=== PATIENT | female | born 1970 | race Caucasian/White ===

== ENCOUNTER 2017-06-15 11:45 | Inpatient (IN) | payer OTHER ==
[~2017-06-15] VITALS: Ht 167.6 cm; Wt 61.6 kg
[2017-06-15 13:21] LABS: EOSINOPHIL (%) 0 % (0-5); HEMATOCRIT 49.2 % (36.0-46.0); IMMATURE GRANULOCYTE (%) 0.6 % (0.0-0.7); IMMATURE GRANULOCYTE COUNT 0.1 K/uL; INSTRUMENT ABS NEUTROPHIL CT 18.5 K/uL; LYMPHOCYTE COUNT 2.2 K/uL (1.0-2.8); MCH 22.2 PG (29.0-34.0); MCHC 32.3 G/DL (30.0-36.0); MCV 68.6 FL (83-99); MEAN PLAT.VOLUME 9.3 uM^3 (9.5-12.4); MONOCYTE (%) 5.7 % (3-12); MONOCYTE COUNT 1.3 K/uL (0-0.8); NEUTROPHIL (%) 83.7 % (45-76); NEUTROPHIL COUNT 18.5 K/uL (1.8-6.4); PLATELET COUNT 437 K/uL (156-360); RBC DIS.WIDTH-CV 19.2 % (11.8-14.6); RED BLOOD COUNT 7.17 M/uL (3.80-5.20); WHITE BLOOD COUNT 22.1 K/uL (4.1-10.2)
[2017-06-15 13:42] LABS: CHLORIDE 79 mEq/L (99-109); POTASSIUM 4.3 mEq/L (3.7-5.4); SODIUM 135 mEq/L (136-147)
[2017-06-15 13:44] LABS: GLUCOSE 156 mg/dL (70-99)
[2017-06-15 13:45] LABS: ANION GAP 30 MEQ/L (2-14)
[2017-06-15 13:46] LABS: TOTAL BILIRUBIN 1.3 mg/dL (0.0-1.0)
[2017-06-15 13:48] LABS: ALKALINE PHOSPHATASE 103 IU/L (3-129); GFR ESTIMATE (CALCULATED) 9 mL/min/
[2017-06-15 13:49] LABS: UREA NITROGEN (BUN) 82 mg/dL (9-23)
[2017-06-15 13:51] LABS: LIPASE 981 U/L (1.0-51.0)
[2017-06-15 13:58] LABS: QUANTITATIVE HCG < 4.0 MIU/ML
[2017-06-15 16:00] LABS: HDL CHOLESTEROL 49 MG/DL (Desirable>=50); LDL CHOLESTEROL 191 mg/dL (Desirable<100); NON-HDL CHOLESTEROL 226 mg/dL (Desirable<160); TOTAL CHOLESTEROL 275 mg/dL (Desirable<200); TRIGLYCERIDES 174 MG/DL (Normal: <150)
[2017-06-15] MEDS ORDERED: TYLENOL REGULA325 MG PO (16:00)
[2017-06-15] MEDS ORDERED: IMODIUM MS REL1 EACH PO (16:02)
[2017-06-15] MEDS ORDERED: LIBRIUM25 MG PO (16:04)
[2017-06-15] MEDS ORDERED: GERI-LANTA LIQ355 ML PO (16:07)
[2017-06-15] MEDS ORDERED: VITAMIN B-1100 MG PO (16:08)
[2017-06-15] MEDS ORDERED: ANTIVERT25 MG PO (16:10)
[2017-06-15 17:56] LABS: ADD MIUA? YES; BILIRUBIN NEGATIVE; BLOOD MODERATE; GLUCOSE (STRIP) NEGATIVE; KETONES NEGATIVE; LEUKOCYTES NEGATIVE; NITRITE NEGATIVE; PROTEIN (STRIP) 100; UROBILINOGEN 0.2 MG/DL (0.2-1.0)
[2017-06-15 17:58] LABS: COLOR DK YELLOW ((YELLOW))
[2017-06-15 18:08] LABS: BACTERIA 1+ /HPF; EPITHELIAL CELLS 1+ /HPF; MUCUS 3+ /LPF; WHITE BLOOD CELLS 0-5 /HPF (0-5)
[2017-06-15 18:26] VITALS: BP 142/83
[2017-06-15 18:28] VITALS: BP 142/83
[2017-06-15 18:58] LABS: AMPHETAMINES QUANT VALUE 0 NG/ML; BARBITUATES QUANT VALUE 0 NG/ML; BENZODIAZEPINES, URINE SCREEN POSITIVE (200 ng/mL); MARIJUANA QUANT VALUE 0 NG/ML; PHENCYCLIDINE QUANT VALUE 0 NG/ML
[2017-06-15 19:36] LABS: ANION GAP 21 MEQ/L (2-14); CHLORIDE 83 MEQ/L (99-109); SAMPLE HEMOLYSIS CHECK 0; SAMPLE ICTERIC CHECK 0; SAMPLE LIPEMIA CHECK 0; SODIUM 134 MEQ/L (136-147)
[2017-06-15 19:42] LABS: GFR ESTIMATE (CALCULATED) 13 mL/min/; GLUCOSE 132 mg/dL (70-99); UREA NITROGEN (BUN) 78 mg/dL (9-23)
[2017-06-15 19:45] LABS: CK-MB 2.5 ng/mL (0.0-4.9)
[2017-06-15 19:58] LABS: CREATINE KINASE 226 IU/L (1-294); TOTAL CK 226 IU/L (1-294)
[2017-06-15 23:10] VITALS: BP 113/58
[2017-06-16 04:28] VITALS: BP 123/79
[2017-06-16 05:48] LABS: EOSINOPHIL (%) 0 % (0-5); HEMATOCRIT 45.5 % (36.0-46.0); IMMATURE GRANULOCYTE (%) 0.7 % (0.0-0.7); IMMATURE GRANULOCYTE COUNT 0.2 K/uL; INSTRUMENT ABS NEUTROPHIL CT 18.1 K/uL; LYMPHOCYTE COUNT 1.8 K/uL (1.0-2.8); MCHC 31.6 G/DL (30.0-36.0); MCV 69.6 FL (83-99); MEAN PLAT.VOLUME 9.5 uM^3 (9.5-12.4); MONOCYTE (%) 6.9 % (3-12); MONOCYTE COUNT 1.5 K/uL (0-0.8); NEUTROPHIL (%) 83.8 % (45-76); NEUTROPHIL COUNT 18.1 K/uL (1.8-6.4); PLATELET COUNT 354 K/uL (156-360); RBC DIS.WIDTH-CV 18.5 % (11.8-14.6); RBC DIS.WIDTH-SD 42.3 % (39-53); RED BLOOD COUNT 6.54 M/uL (3.80-5.20); WHITE BLOOD COUNT 21.7 K/uL (4.1-10.2)
[2017-06-16 06:02] LABS: ANION GAP 22 MEQ/L (2-14); CHLORIDE 87 MEQ/L (99-109); GFR ESTIMATE (CALCULATED) 17 mL/min/; GLUCOSE 99 mg/dL (70-99); MAGNESIUM 3.4 mg/dl (1.3-2.7); POTASSIUM 3.9 MEQ/L (3.7-5.4); SAMPLE HEMOLYSIS CHECK 0; SAMPLE ICTERIC CHECK 0; SAMPLE LIPEMIA CHECK 0; SODIUM 135 MEQ/L (136-147); UREA NITROGEN (BUN) 79 mg/dL (9-23)
[2017-06-16 07:52] VITALS: BP 117/78
[2017-06-16 08:38] LABS: LIPASE 338 U/L (1.0-51.0)
[2017-06-16 10:58] LABS: ANION GAP 15 MEQ/L (2-14); CHLORIDE 88 MEQ/L (99-109); GFR ESTIMATE (CALCULATED) 21 mL/min/; GLUCOSE 115 mg/dL (70-99); POTASSIUM 3.4 MEQ/L (3.7-5.4); SAMPLE HEMOLYSIS CHECK 0; SAMPLE ICTERIC CHECK 0; SAMPLE LIPEMIA CHECK 0; SODIUM 133 MEQ/L (136-147); UREA NITROGEN (BUN) 84 mg/dL (9-23)
[2017-06-16 11:19] LABS: HBSG INDEX 0.18
[2017-06-16 11:20] LABS: ANTI-HEPATITIS A VIRUS (IGM) Nonreactive; HAV INDEX 0.26; HPCA INDEX 0.21
[2017-06-16 11:21] LABS: ANTI-HEPATITIS B CORE (IGM) Nonreactive; HBC IgM INDEX 0.46
[2017-06-16 11:42] VITALS: BP 104/60
[2017-06-16 12:18] LABS: HIV-1/2 AB/AG COMBO Nonreactive
[2017-06-16 17:57] VITALS: BP 123/69
[2017-06-16 19:53] VITALS: BP 118/62
[2017-06-16 23:34] LABS: POTASSIUM 3.4 mEq/L (3.7-5.4)
[2017-06-16 23:35] LABS: CHLORIDE 101 mEq/L (99-109); SODIUM 141 mEq/L (136-147)
[2017-06-16 23:36] LABS: GLUCOSE 81 mg/dL (70-99)
[2017-06-16 23:37] LABS: ANION GAP 11 MEQ/L (2-14)
[2017-06-16 23:39] LABS: GFR ESTIMATE (CALCULATED) 37 mL/min/
[2017-06-16 23:40] LABS: UREA NITROGEN (BUN) 65 mg/dL (9-23)
[2017-06-17 00:33] VITALS: BP 114/59
[2017-06-17 05:48] LABS: ALKALINE PHOSPHATASE 60 IU/L (3-129); ANION GAP 11 MEQ/L (2-14); GFR ESTIMATE (CALCULATED) 47 mL/min/; GLUCOSE 75 mg/dL (70-99); MAGNESIUM 2.9 mg/dl (1.3-2.7); POTASSIUM 3.3 MEQ/L (3.7-5.4); SAMPLE HEMOLYSIS CHECK 0; SAMPLE ICTERIC CHECK 0; SAMPLE LIPEMIA CHECK 0; SODIUM 141 MEQ/L (136-147); TOTAL BILIRUBIN 1.2 MG/DL (0.0-1.0); UREA NITROGEN (BUN) 50 mg/dL (9-23)
[2017-06-17 05:50] LABS: CHLORIDE 103 MEQ/L (99-109)
[2017-06-17 06:18] LABS: EOSINOPHIL (%) 0.1 % (0-5); HEMATOCRIT 34.3 % (36.0-46.0); IMMATURE GRANULOCYTE (%) 0.3 % (0.0-0.7); INSTRUMENT ABS NEUTROPHIL CT 7.1 K/uL; LYMPHOCYTE COUNT 1.4 K/uL (1.0-2.8); MCH 22.3 PG (29.0-34.0); MCHC 30.3 G/DL (30.0-36.0); MCV 73.4 FL (83-99); MEAN PLAT.VOLUME 9.5 uM^3 (9.5-12.4); MONOCYTE (%) 6.5 % (3-12); MONOCYTE COUNT 0.6 K/uL (0-0.8); NEUTROPHIL (%) 77.5 % (45-76); NEUTROPHIL COUNT 7.1 K/uL (1.8-6.4); PLATELET COUNT 287 K/uL (156-360); RBC DIS.WIDTH-CV 17.1 % (11.8-14.6); RBC DIS.WIDTH-SD 44.7 % (39-53); WHITE BLOOD COUNT 9.1 K/uL (4.1-10.2)
[2017-06-17 06:19] LABS: RED BLOOD COUNT 4.67 M/uL (3.80-5.20)
[2017-06-17 09:13] VITALS: BP 141/81
[2017-06-17 12:00] VITALS: BP 141/66
[2017-06-17 14:56] VITALS: BP 144/89
[2017-06-17 19:05] VITALS: BP 11/55
[2017-06-17 22:46] VITALS: BP 120/74
[2017-06-18] VITALS (7 sets, daily range): BP systolic 103–134; BP diastolic 50–65
[2017-06-18 06:05] LABS: EOSINOPHIL (%) 1.1 % (0-5); EOSINOPHIL COUNT 0.1 K/uL (0-0.3); HEMATOCRIT 32.2 % (36.0-46.0); IMMATURE GRANULOCYTE (%) 0.4 % (0.0-0.7); INSTRUMENT ABS NEUTROPHIL CT 3.8 K/uL; LYMPHOCYTE COUNT 1.4 K/uL (1.0-2.8); MCH 22.4 PG (29.0-34.0); MCHC 29.8 G/DL (30.0-36.0); MCV 75.2 FL (83-99); MEAN PLAT.VOLUME 9.2 uM^3 (9.5-12.4); MONOCYTE (%) 6.3 % (3-12); MONOCYTE COUNT 0.4 K/uL (0-0.8); NEUTROPHIL (%) 67.4 % (45-76); NEUTROPHIL COUNT 3.8 K/uL (1.8-6.4); PLATELET COUNT 229 K/uL (156-360); RBC DIS.WIDTH-CV 16.7 % (11.8-14.6); RBC DIS.WIDTH-SD 45.5 % (39-53); RED BLOOD COUNT 4.28 M/uL (3.80-5.20); WHITE BLOOD COUNT 5.6 K/uL (4.1-10.2)
[2017-06-18 06:33] LABS: ALKALINE PHOSPHATASE 48 IU/L (3-129); ANION GAP 12 MEQ/L (2-14); CHLORIDE 108 MEQ/L (99-109); DIRECT BILIRUBIN 0.1 mg/dL (0.0-0.3); GLUCOSE 60 mg/dL (70-99); POTASSIUM 3.2 MEQ/L (3.7-5.4); PREALBUMIN 15.9 mg/dL (10-40); SAMPLE HEMOLYSIS CHECK 0; SAMPLE ICTERIC CHECK 0; SAMPLE LIPEMIA CHECK 0; SODIUM 144 MEQ/L (136-147); TRIGLYCERIDES 151 MG/DL (Normal: <150); UREA NITROGEN (BUN) 26 mg/dL (9-23)
[2017-06-18 06:34] LABS: GFR ESTIMATE (CALCULATED) > 59 mL/min/; MAGNESIUM 2.3 mg/dl (1.3-2.7); TOTAL BILIRUBIN 0.7 MG/DL (0.0-1.0)
[2017-06-19 04:42] VITALS: BP 113/62
[2017-06-19 06:41] LABS: HEMATOCRIT 28.7 % (36.0-46.0); MCH 23.2 PG (29.0-34.0); MCHC 31.7 G/DL (30.0-36.0); MCV 73.2 FL (83-99); MEAN PLAT.VOLUME 9.7 uM^3 (9.5-12.4); PLATELET COUNT 227 K/uL (156-360); RBC DIS.WIDTH-CV 16.2 % (11.8-14.6); RBC DIS.WIDTH-SD 42.4 % (39-53); RED BLOOD COUNT 3.92 M/uL (3.80-5.20); WHITE BLOOD COUNT 5.5 K/uL (4.1-10.2)
[2017-06-19 07:09] LABS: ANION GAP 9 MEQ/L (2-14); CHLORIDE 103 MEQ/L (99-109); GFR ESTIMATE (CALCULATED) > 59 mL/min/; GLUCOSE 100 mg/dL (70-99); MAGNESIUM 1.6 mg/dl (1.3-2.7); POTASSIUM 3.4 MEQ/L (3.7-5.4); SAMPLE HEMOLYSIS CHECK 0; SAMPLE ICTERIC CHECK 0; SAMPLE LIPEMIA CHECK 0; SODIUM 138 MEQ/L (136-147); UREA NITROGEN (BUN) 18 mg/dL (9-23)
[2017-06-19 08:15] VITALS: BP 121/88
[2017-06-19 11:41] VITALS: BP 122/56
[2017-06-19 17:04] VITALS: BP 11/67
[2017-06-19 19:33] VITALS: BP 123/68
[2017-06-19 23:11] VITALS: BP 116/59
[2017-06-20 04:59] VITALS: BP 102/58
[2017-06-20 07:00] LABS: HEMATOCRIT 31.2 % (36.0-46.0); MCH 22.7 PG (29.0-34.0); MCHC 31.1 G/DL (30.0-36.0); MCV 72.9 FL (83-99); MEAN PLAT.VOLUME 9.2 uM^3 (9.5-12.4); PLATELET COUNT 252 K/uL (156-360); RBC DIS.WIDTH-CV 16.1 % (11.8-14.6); RBC DIS.WIDTH-SD 41.9 % (39-53); RED BLOOD COUNT 4.28 M/uL (3.80-5.20); WHITE BLOOD COUNT 4.8 K/uL (4.1-10.2)
[2017-06-20 07:05] LABS: ANION GAP 8 MEQ/L (2-14); CHLORIDE 104 MEQ/L (99-109); GFR ESTIMATE (CALCULATED) > 59 mL/min/; GLUCOSE 134 mg/dL (70-99); MAGNESIUM 1.7 mg/dl (1.3-2.7); SAMPLE HEMOLYSIS CHECK 0; SAMPLE ICTERIC CHECK 0; SAMPLE LIPEMIA CHECK 0; SODIUM 137 MEQ/L (136-147); UREA NITROGEN (BUN) 16 mg/dL (9-23)
[2017-06-20 07:10] LABS: POTASSIUM 4.3 MEQ/L (3.7-5.4)
[2017-06-20 08:12] VITALS: BP 105/58
[2017-06-20 11:58] VITALS: BP 107/57
[2017-06-20 17:16] VITALS: BP 97/58
[2017-06-20 19:55] VITALS: BP 94/68
[2017-06-20 23:25] VITALS: BP 92/50
[2017-06-21 07:09] LABS: ALKALINE PHOSPHATASE 56 IU/L (3-129); ANION GAP 8 MEQ/L (2-14); CHLORIDE 103 MEQ/L (99-109); DIRECT BILIRUBIN 0.1 mg/dL (0.0-0.3); GFR ESTIMATE (CALCULATED) > 59 mL/min/; GLUCOSE 108 mg/dL (70-99); MAGNESIUM 1.9 mg/dl (1.3-2.7); POTASSIUM 4.2 MEQ/L (3.7-5.4); PREALBUMIN 27.1 mg/dL (10-40); SAMPLE HEMOLYSIS CHECK 0; SAMPLE ICTERIC CHECK 0; SAMPLE LIPEMIA CHECK 0; SODIUM 135 MEQ/L (136-147); TOTAL BILIRUBIN 0.4 MG/DL (0.0-1.0); TRIGLYCERIDES 120 MG/DL (Normal: <150); UREA NITROGEN (BUN) 15 mg/dL (9-23)
[2017-06-21 07:14] LABS: EOSINOPHIL (%) 2.4 % (0-5); EOSINOPHIL COUNT 0.1 K/uL (0-0.3); HEMATOCRIT 31.4 % (36.0-46.0); IMMATURE GRANULOCYTE (%) 0.4 % (0.0-0.7); INSTRUMENT ABS NEUTROPHIL CT 2.7 K/uL; LYMPHOCYTE COUNT 1.4 K/uL (1.0-2.8); MCH 22.5 PG (29.0-34.0); MCHC 30.6 G/DL (30.0-36.0); MCV 73.5 FL (83-99); MEAN PLAT.VOLUME 9.5 uM^3 (9.5-12.4); MONOCYTE COUNT 0.3 K/uL (0-0.8); NEUTROPHIL (%) 60.6 % (45-76); NEUTROPHIL COUNT 2.7 K/uL (1.8-6.4); PLATELET COUNT 242 K/uL (156-360); RBC DIS.WIDTH-CV 16.3 % (11.8-14.6); RBC DIS.WIDTH-SD 43.3 % (39-53); RED BLOOD COUNT 4.27 M/uL (3.80-5.20); WHITE BLOOD COUNT 4.5 K/uL (4.1-10.2)
[2017-06-21 07:49] VITALS: BP 101/52
[2017-06-21 11:34] VITALS: BP 100/50
[2017-06-21 15:43] VITALS: BP 110/56
[2017-06-22 00:25] VITALS: BP 90/55
[2017-06-22 06:31] LABS: ANION GAP 6 MEQ/L (2-14); CHLORIDE 105 MEQ/L (99-109); GFR ESTIMATE (CALCULATED) > 59 mL/min/; GLUCOSE 99 mg/dL (70-99); MAGNESIUM 1.9 mg/dl (1.3-2.7); SAMPLE HEMOLYSIS CHECK 0; SAMPLE ICTERIC CHECK 0; SAMPLE LIPEMIA CHECK 0; SODIUM 137 MEQ/L (136-147); UREA NITROGEN (BUN) 12 mg/dL (9-23)
[2017-06-22 07:38] VITALS: BP 103/58
[2017-06-22 15:18] VITALS: BP 103/55
[2017-06-22 23:32] VITALS: BP 93/44
[2017-06-22 23:45] VITALS: BP 98/51
[2017-06-23 08:34] VITALS: BP 90/51
[2017-06-23 09:10] LABS: ANION GAP 7 MEQ/L (2-14); CHLORIDE 106 MEQ/L (99-109); GFR ESTIMATE (CALCULATED) > 59 mL/min/; GLUCOSE 123 mg/dL (70-99); MAGNESIUM 1.7 mg/dl (1.3-2.7); POTASSIUM 3.9 MEQ/L (3.7-5.4); SAMPLE HEMOLYSIS CHECK 0; SAMPLE ICTERIC CHECK 0; SAMPLE LIPEMIA CHECK 0; SODIUM 137 MEQ/L (136-147); UREA NITROGEN (BUN) 10 mg/dL (9-23)
[2017-06-23 13:08] LABS: LIPASE 87 U/L (1.0-51.0)
[2017-06-23 16:30] VITALS: BP 94/55
[2017-06-23 23:38] VITALS: BP 104/55
[2017-06-24 06:16] LABS: EOSINOPHIL (%) 3.3 % (0-5); EOSINOPHIL COUNT 0.1 K/uL (0-0.3); HEMATOCRIT 33.1 % (36.0-46.0); IMMATURE GRANULOCYTE (%) 0.5 % (0.0-0.7); INSTRUMENT ABS NEUTROPHIL CT 2.7 K/uL; LYMPHOCYTE COUNT 1.1 K/uL (1.0-2.8); MCH 22.6 PG (29.0-34.0); MCHC 30.2 G/DL (30.0-36.0); MCV 74.9 FL (83-99); MEAN PLAT.VOLUME 9.6 uM^3 (9.5-12.4); MONOCYTE (%) 6.8 % (3-12); MONOCYTE COUNT 0.3 K/uL (0-0.8); NEUTROPHIL (%) 63.1 % (45-76); NEUTROPHIL COUNT 2.7 K/uL (1.8-6.4); PLATELET COUNT 238 K/uL (156-360); RBC DIS.WIDTH-CV 17.2 % (11.8-14.6); RBC DIS.WIDTH-SD 44.7 % (39-53); RED BLOOD COUNT 4.42 M/uL (3.80-5.20); WHITE BLOOD COUNT 4.3 K/uL (4.1-10.2)
[2017-06-24 06:43] LABS: ANION GAP 6 MEQ/L (2-14); CHLORIDE 107 MEQ/L (99-109); GFR ESTIMATE (CALCULATED) > 59 mL/min/; GLUCOSE 101 mg/dL (70-99); POTASSIUM 4.1 MEQ/L (3.7-5.4); SAMPLE HEMOLYSIS CHECK 0; SAMPLE ICTERIC CHECK 0; SAMPLE LIPEMIA CHECK 0; SODIUM 140 MEQ/L (136-147); UREA NITROGEN (BUN) 9 mg/dL (9-23)
[2017-06-24 08:19] VITALS: BP 105/57
[2017-06-24 15:14] LABS: C DIFF TOXIN POSITIVE (NEGATIVE)
[2017-06-24 15:22] LABS: PROBE CHECK PASS
[2017-06-24 16:41] VITALS: BP 110/68
[2017-06-25 00:28] VITALS: BP 120/60
[2017-06-25 07:47] LABS: ANION GAP 7 MEQ/L (2-14); CHLORIDE 104 MEQ/L (99-109); GFR ESTIMATE (CALCULATED) > 59 mL/min/; GLUCOSE 115 mg/dL (70-99); MAGNESIUM 2.2 mg/dl (1.3-2.7); POTASSIUM 4.7 MEQ/L (3.7-5.4); SAMPLE HEMOLYSIS CHECK 0; SAMPLE ICTERIC CHECK 0; SAMPLE LIPEMIA CHECK 0; SODIUM 138 MEQ/L (136-147); UREA NITROGEN (BUN) 10 mg/dL (9-23)
[2017-06-25 08:00] VITALS: BP 114/54
[2017-06-25 16:03] VITALS: BP 109/60
[2017-06-25 23:16] VITALS: BP 113/63
[2017-06-26 07:05] VITALS: BP 102/61
[2017-06-26 09:31] LABS: ANION GAP 11 MEQ/L (2-14); CHLORIDE 102 MEQ/L (99-109); GFR ESTIMATE (CALCULATED) > 59 mL/min/; GLUCOSE 151 mg/dL (70-99); POTASSIUM 3.9 MEQ/L (3.7-5.4); SAMPLE HEMOLYSIS CHECK 0; SAMPLE ICTERIC CHECK 0; SAMPLE LIPEMIA CHECK 0; SODIUM 136 MEQ/L (136-147); UREA NITROGEN (BUN) 14 mg/dL (9-23)
[2017-06-26 15:04] VITALS: BP 110/80
[2017-06-27 00:13] VITALS: BP 109/63
[2017-06-27 07:34] LABS: ANION GAP 8 MEQ/L (2-14); CHLORIDE 102 MEQ/L (99-109); GFR ESTIMATE (CALCULATED) > 59 mL/min/; MAGNESIUM 2.2 mg/dl (1.3-2.7); POTASSIUM 4.6 MEQ/L (3.7-5.4); SAMPLE HEMOLYSIS CHECK 0; SAMPLE ICTERIC CHECK 0; SAMPLE LIPEMIA CHECK 0; SODIUM 137 MEQ/L (136-147); UREA NITROGEN (BUN) 19 mg/dL (9-23)
[2017-06-27 07:40] LABS: GLUCOSE 107 mg/dL (70-99)
[2017-06-27 07:45] VITALS: BP 110/80
[2017-06-27 08:39] LABS: HEMATOCRIT 35.1 % (36.0-46.0); MCH 22.8 PG (29.0-34.0); MCHC 30.5 G/DL (30.0-36.0); MCV 74.7 FL (83-99); MEAN PLAT.VOLUME 9.6 uM^3 (9.5-12.4); RBC DIS.WIDTH-CV 18.2 % (11.8-14.6); RBC DIS.WIDTH-SD 46.6 % (39-53); WHITE BLOOD COUNT 5.8 K/uL (4.1-10.2)
[2017-06-27 09:38] LABS: PLATELET COUNT 319 K/uL (156-360)
[2017-06-27 16:36] VITALS: BP 105/63
[2017-06-27 19:40] VITALS: BP 102/70
[2017-06-27 21:44] VITALS: BP 100/65
[2017-06-27 23:37] VITALS: BP 112/64
[2017-06-28 06:59] LABS: HEMATOCRIT 35.5 % (36.0-46.0); MCH 23.9 PG (29.0-34.0); MCHC 32.1 G/DL (30.0-36.0); MCV 74.4 FL (83-99); MEAN PLAT.VOLUME 9.8 uM^3 (9.5-12.4); PLATELET COUNT 333 K/uL (156-360); RBC DIS.WIDTH-CV 18.6 % (11.8-14.6); RBC DIS.WIDTH-SD 47.4 % (39-53); RED BLOOD COUNT 4.77 M/uL (3.80-5.20)
[2017-06-28 07:14] LABS: ANION GAP 11 MEQ/L (2-14); CHLORIDE 102 MEQ/L (99-109); GFR ESTIMATE (CALCULATED) > 59 mL/min/; SAMPLE HEMOLYSIS CHECK 0; SAMPLE ICTERIC CHECK 0; SAMPLE LIPEMIA CHECK 0; SODIUM 139 MEQ/L (136-147); UREA NITROGEN (BUN) 16 mg/dL (9-23)
[2017-06-28 07:15] LABS: GLUCOSE 77 mg/dL (70-99)
[2017-06-28 08:24] VITALS: BP 105/72
[2017-06-28 16:20] VITALS: BP 124/68
[2017-06-29 00:17] VITALS: BP 109/66
[2017-06-29 07:43] VITALS: BP 107/70
[2017-06-29] MEDS ORDERED: BUPROPION HCL100 M1 PO (10:22)
[2017-06-29] MEDS ORDERED: BUSPAR10 MG PO (10:22)
[2017-06-29] MEDS ORDERED: SUCRALFATE1 GM PO (10:22)
[2017-06-29] MEDS ORDERED: NICOTINE PATCH1 EAC2 TD (10:22)
[2017-06-29] MEDS ORDERED: TRAZODONE HCL50 MG PO (10:22)
[2017-06-29] MEDS ORDERED: PANTOPRAZOLE SO40 MG PO (10:22)
[2017-06-29] MEDS ORDERED: METRONIDAZOLE500 MG PO (10:22)
[2017-06-29] MEDS ORDERED: CLONAZEPAM0.5 MG PO (10:22)
== END 2017-06-29 12:40 | DRG 393 ==
LOC: EME 11:45 → 3EAST 14:54 → EDOF 14:54 → 4EAST 14:54 → ENRESERV 14:56 → 4EAST 18:02 → ENRESERV 06-17 20:16 → 3EAST 06-17 22:19
PROVIDERS: Emergency Medicine; Hospitalist; Internal Medicine; Internal Medicine Nephrology; Physician Assistant; Thoracic Surgery (Cardiothoracic Vascular Surgery)
PROC: 02HV33Z Insertion of Infusion Device into Superior Vena Cava, Percutaneous Approach (ICD-10-PCS; 2017-06-16)
PROC: 3E0436Z Introduction of Nutritional Substance into Central Vein, Percutaneous Approach (ICD-10-PCS; 2017-06-18)
PROC: 0DC68ZZ Extirpation of Matter from Stomach, Via Natural or Artificial Opening Endoscopic (ICD-10-PCS; principal; 2017-06-27)
DX: K55.1 Chronic vascular disorders of intestine (principal); K31.5 Obstruction of duodenum; A41.9 Sepsis, unspecified organism; N17.9 Acute kidney failure, unspecified; A04.7 Enterocolitis due to Clostridium difficile; T54.2X2A Toxic effect of corrosive acids and acid-like substances, intentional self-harm, initial encounter; T28.7XXA Corrosion of other parts of alimentary tract, initial encounter; K25.9 Gastric ulcer, unspecified as acute or chronic, without hemorrhage or perforation; T79.8XXA Other early complications of trauma, initial encounter; T18.2XXA Foreign body in stomach, initial encounter; X83.8XXA Intentional self-harm by other specified means, initial encounter; Y92.230 Patient room in hospital as the place of occurrence of the external cause; E83.41 Hypermagnesemia; E86.0 Dehydration; E87.6 Hypokalemia; K85.90 Acute pancreatitis without necrosis or infection, unspecified; F33.9 Major depressive disorder, recurrent, unspecified; E44.1 Mild protein-calorie malnutrition; F11.20 Opioid dependence, uncomplicated; E83.39 Other disorders of phosphorus metabolism; Z91.19 Patient's noncompliance with other medical treatment and regimen; R33.9 Retention of urine, unspecified; F41.8 Other specified anxiety disorders; S61.402A Unspecified open wound of left hand, initial encounter; S61.401A Unspecified open wound of right hand, initial encounter; S51.801A Unspecified open wound of right forearm, initial encounter; S51.802A Unspecified open wound of left forearm, initial encounter; F13.10 Sedative, hypnotic or anxiolytic abuse, uncomplicated; Z68.1 Body mass index [BMI] 19.9 or less, adult; F17.210 Nicotine dependence, cigarettes, uncomplicated; Z98.51 Tubal ligation status
CPT/HCPCS: 71010; 74000; 74020; 74176; 74241; 76770; 80048; 80048 91; 80053; 80061; 80074; 80202; 80306 90; 81003; 82248; 82550; 82553; 82570; 83605; 83690; 83735; 84100; 84134; 84156; 84478; 84540; 84550; 84630 90; 84702; 85025; 85027; 86703; 87040; 87070; 87075; 87205; 87493; 93005; 94760; 99202; 99281; 99285; C1751; C9113; J0330; J1170; J1644; J2060; J2250; J2270; J2543; J2765; J3010; J3370; J3480; J7030; J7050; S0028